=== PATIENT | female | born 1980 | race Caucasian/White ===

== ENCOUNTER 2019-03-27 10:24 | Emergency (ER) | payer OTHER ==
[~2019-03-27] VITALS: Ht 172.7 cm; Wt 95.3 kg
[2019-03-27 11:02] LABS: BILIRUBIN NEGATIVE (NEGATIVE); BLOOD NEGATIVE (NEGATIVE); CLARITY SL CLOUDY (CLEAR); COLOR YELLOW (YELLOW); GLUCOSE NEGATIVE (NEGATIVE); KETONE NEGATIVE (NEGATIVE); LEUKO ESTERASE 1+ (NEGATIVE); NITRITE NEGATIVE (NEGATIVE); SPECIFIC GRAVITY 1.015 (1.005-1.030); UROBILINOGEN 0.2 E.U./dl (0.2-1.0)
[2019-03-27 11:03] LABS: BASO % 0.2 % (0.0-1.0); EOS # 0.1 10*3/uL (0.0-0.4); EOS % 0.9 % (1.0-4.0); HEMATOCRIT 31.4 % (37.0-47.0); HEMOGLOBIN 10.3 g/dl (12.0-16.0); LYMPH # 1.3 10*3/uL (1.3-4.4); LYMPH % 12.5 % (27.0-41.0); MEAN CELL VOLUME 82.8 fl (81.0-99.0); MEAN CORPUSCULAR HGB 27.2 pg (27.0-31.0); MEAN CORPUSCULAR HGB CONC 32.8 g/dl (33.0-37.0); MEAN PLATELET VOLUME 11.3 fl (9.6-12.3); MONO # 0.6 10*3/uL (0.1-1.0); NEUT # 8.5 10*3/uL (2.3-7.9); NEUT % 79.8 % (47.0-73.0); PLATELET COUNT AUTOMATED 230 10*3/uL (130-400); RED BLOOD COUNT 3.79 10*6/uL (4.10-5.10); RED CELL DISTRI WIDTH 12.6 % (0-14.5); WHITE BLOOD COUNT 10.7 10*3/uL (4.8-10.8)
[2019-03-27 11:13] LABS: BACTERIA 3+; EPITHELIAL CELLS 31-40
[2019-03-27 11:19] LABS: ALBUMIN 2.5 gm/dl (3.1-4.5); ALKALINE PHOSPHATASE 102 U/L (45-117); BUN 6 mg/dl (7-24); CHLORIDE 105 mmol/L (98-107); CREATININE 0.66 mg/dL (0.55-1.02); POTASSIUM 3.9 mmol/L (3.5-5.1); SGOT/AST 15 IU/L (3-35); SGPT/ALT 19 U/L (12-78); SODIUM 137 mmol/L (136-145); TOTAL PROTEIN 6.5 gm/dL (6.4-8.2)
== END 2019-03-27 12:30 | disposition home or self-care (01) ==
LOC: ED 10:24
PROVIDERS: Emergency Medicine
DX: O26.893 Other specified pregnancy related conditions, third trimester (principal); R10.84 Generalized abdominal pain; R11.0 Nausea; R19.7 Diarrhea, unspecified; Z3A.33 33 weeks gestation of pregnancy; Z88.1 Allergy status to other antibiotic agents; Z88.0 Allergy status to penicillin

== ENCOUNTER 2019-05-09 16:30 | Emergency (ER) | payer OTHER ==
[~2019-05-09] VITALS: Ht 175.2 cm; Wt 97.5 kg
== END 2019-05-09 17:47 ==
LOC: ED 16:30
DX: O26.893 Other specified pregnancy related conditions, third trimester (principal); R10.9 Unspecified abdominal pain; Z3A.39 39 weeks gestation of pregnancy; Z88.0 Allergy status to penicillin; Z88.1 Allergy status to other antibiotic agents; Z91.040 Latex allergy status

== ENCOUNTER 2020-10-29 13:37 | Inpatient (IN) | payer OTHER ==
[~2020-10-29] VITALS: Ht 175.2 cm; Wt 117.5 kg
[2020-10-29 13:50] VITALS: BP 130/70
[2020-10-29] MEDS ORDERED: ZOLOFT100 MG PO (14:17)
[2020-10-29] MEDS ORDERED: VYVANSE70 MG PO (14:18)
[2020-10-29 14:48] LABS: BASO % 0.6 % (0.0-1.0); EOS # 0.3 10*3/uL (0.0-0.4); HEMATOCRIT 36.4 % (37.0-47.0); LYMPH # 1.2 10*3/uL (1.3-4.4); LYMPH % 17.9 % (27.0-41.0); MEAN CELL VOLUME 78.6 fl (81.0-99.0); MEAN CORPUSCULAR HGB 24.8 pg (27.0-31.0); MEAN CORPUSCULAR HGB CONC 31.6 g/dl (33.0-37.0); MEAN PLATELET VOLUME 10.6 fl (9.6-12.3); MONO # 0.5 10*3/uL (0.1-1.0); MONO % 6.8 % (3.0-9.0); NEUT # 4.8 10*3/uL (2.3-7.9); NEUT % 70.4 % (47.0-73.0); PLATELET COUNT AUTOMATED 209 10*3/uL (130-400); RED BLOOD COUNT 4.63 10*6/uL (4.10-5.10); RED CELL DISTRI WIDTH 15.7 % (0-14.5); WHITE BLOOD COUNT 6.8 10*3/uL (4.8-10.8)
[2020-10-29 14:57] LABS: INTERNATIONAL NORM RATIO 1.1 (2.0-3.5)
[2020-10-29 15:04] LABS: ALBUMIN 3.3 gm/dl (3.1-4.5); ALKALINE PHOSPHATASE 91 U/L (45-117); BUN 11 mg/dl (7-24); CHLORIDE 103 mmol/L (98-107); CREATININE 0.84 mg/dL (0.55-1.02); POTASSIUM 3.6 mmol/L (3.5-5.1); SGOT/AST 61 IU/L (3-35); SGPT/ALT 55 U/L (12-78); SODIUM 139 mmol/L (136-145); TOTAL PROTEIN 7.4 gm/dL (6.4-8.2)
[2020-10-29 15:08] LABS: BILIRUBIN Negative (Negative); BLOOD Trace-Intact (Negative); CLARITY Cloudy (Clear); COLOR Yellow (Yellow); GLUCOSE Negative (Negative); KETONE Trace (Negative); LEUKO ESTERASE 2+ (Negative); NITRITE Negative (Negative); PH 5.5 (4.5-8.0); UROBILINOGEN 0.2 E.U./dl (0.0-1.0)
[2020-10-29 15:10] LABS: BETA-HCG, QUANT < 1.0 mIU/mL (1-3); ETHYL ALCOHOL < 3.0 mg/dl (<3)
[2020-10-29 15:29] LABS: BACTERIA TRACE; EPITHELIAL CELLS 51-100; HYALINE CAST 0-2; MUCOUS TRACE; WBC 16-20 wbc/hpf (0-5)
[2020-10-29 16:00] VITALS: BP 124/64
[2020-10-29 20:00] VITALS: BP 118/74
[2020-10-30] VITALS: BP 110/50
[2020-10-30 08:00] VITALS: BP 146/74
[2020-10-30] MEDS ORDERED: PRILOSEC20 M1 PO (08:20)
[2020-10-30 12:00] VITALS: BP 124/71
[2020-10-30 16:00] VITALS: BP 130/60
[2020-10-30 20:00] VITALS: BP 112/60
[2020-10-31] VITALS: BP 131/69
[2020-10-31 08:00] VITALS: BP 132/70
[2020-10-31 12:00] VITALS: BP 146/70
[2020-10-31] MEDS ORDERED: VYVANSE70 MG PO (12:36)
[2020-10-31 16:36] VITALS: BP 133/56
[2020-10-31 20:00] VITALS: BP 140/91
[2020-11-01] VITALS: BP 123/89
[2020-11-01 08:00] VITALS: BP 156/90
== END 2020-11-01 11:25 | disposition home or self-care (01) | DRG 775 ==
LOC: 4E 13:37
PROVIDERS: Registered Nurse; ADMIT Internal Medicine; ATTEND Internal Medicine
DX: F10.239 Alcohol dependence with withdrawal, unspecified (principal); F43.10 Post-traumatic stress disorder, unspecified; F90.9 Attention-deficit hyperactivity disorder, unspecified type; F41.9 Anxiety disorder, unspecified; F31.9 Bipolar disorder, unspecified; Z20.822 Contact with and (suspected) exposure to COVID-19; Z88.0 Allergy status to penicillin; Z88.1 Allergy status to other antibiotic agents; Z91.040 Latex allergy status; Z88.8 Allergy status to other drugs, medicaments and biological substances; Z79.899 Other long term (current) drug therapy

== ENCOUNTER 2023-05-28 19:50 | Emergency (ER) | payer OTHER ==
[~2023-05-28] VITALS: Ht 175.2 cm; Wt 86.2 kg
[~2023-05-28 19:50] MED LIST: PRILOSEC20 M1 PO; VYVANSE70 MG PO; ZOLOFT100 MG PO
[2023-05-28] MEDS ORDERED: MELOXICAM15 MG PO (22:32)
== END 2023-05-28 22:44 | disposition home or self-care (01) ==
LOC: ED 19:50
DX: R07.81 Pleurodynia (principal); F31.9 Bipolar disorder, unspecified; Z88.0 Allergy status to penicillin; Z88.1 Allergy status to other antibiotic agents; Z88.6 Allergy status to analgesic agent; Z91.040 Latex allergy status; Z88.8 Allergy status to other drugs, medicaments and biological substances; Z98.890 Other specified postprocedural states; W01.10XA Fall on same level from slipping, tripping and stumbling with subsequent striking against unspecified object, initial encounter; Y93.89 Activity, other specified; Y92.009 Unspecified place in unspecified non-institutional (private) residence as the place of occurrence of the external cause; Y99.8 Other external cause status

== ENCOUNTER → 2024-08-07 | Outpatient (CLI) | payer OTHER ==
[~2024-08-07] MED LIST changes: +MELOXICAM15 MG PO
== END | disposition home or self-care (01) ==
LOC: CARD 12:02
PROVIDERS: ATTEND Physician Assistant
DX: Z51.81 Encounter for therapeutic drug level monitoring (principal); F41.1 Generalized anxiety disorder